=== PATIENT | male | born 1975 ===

== ENCOUNTER → 2024-06-29 14:12 | Outpatient (REF) | payer OTHER, SELFPAY | LOC: DHSLP 14:12 | PROVIDERS: ATTENDING PHYSICIAN Internal Medicine | DX: G47.30 Sleep apnea, unspecified (principal); G47.8 Other sleep disorders; R06.83 Snoring | CPT/HCPCS: 95800 ==

== ENCOUNTER → 2025-05-24 17:00 | Outpatient (REF) | payer OTHER, SELFPAY | LOC: RAD 17:00 | PROVIDERS: ATTENDING PHYSICIAN Family Medicine | DX: M25.532 Pain in left wrist (principal) | CPT/HCPCS: 73100; 73130 ==